=== PATIENT | female | born 1975 | race Asian ===

== ENCOUNTER 2022-05-03 22:32 | Emergency (ER) | payer BC ==
[~2022-05-03] VITALS: Ht 162.6 cm; Wt 65.8 kg
[2022-05-03 22:44] VITALS: BP 173/115
== END 2022-05-04 00:21 | disposition home or self-care (01) ==
LOC: ER 22:36
DX: S60.445A External constriction of left ring finger, initial encounter (principal); Z88.0 Allergy status to penicillin; W49.04XA Ring or other jewelry causing external constriction, initial encounter; Y93.89 Activity, other specified; Y92.89 Other specified places as the place of occurrence of the external cause; Y99.8 Other external cause status